=== PATIENT | male | born 1990 | race Caucasian/White ===

== ENCOUNTER 2016-05-22 19:28 | Emergency (ER) | payer SELFPAY ==
[~2016-05-22] VITALS: Ht 170.2 cm; Wt 90.0 kg
[2016-05-22 19:31] VITALS: Ht 170.2 cm; Wt 90.0 kg
[2016-05-22] MEDS ORDERED: KETOROLAC 30 MG INJ IM STA (20:57)
[2016-05-22] MEDS ORDERED: DIAZEPAM 5 MG TAB PO ONE (21:00)
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
[2016-05-22] MEDS ORDERED: IBUP-1542 PO (21:46)
[2016-05-22] MEDS ORDERED: DIAZ5TAB4 PO (21:46)
[2016-05-22 22:32] VITALS: BP 168/78; PULSE 70; RESP 17
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
== END 2016-05-22 22:35 | disposition home or self-care (01) ==
LOC: FTE 19:28
DX: S29.001A Unspecified injury of muscle and tendon of front wall of thorax, initial encounter (principal); R07.9 Chest pain, unspecified; V49.50XA Passenger injured in collision with unspecified motor vehicles in traffic accident, initial encounter; Y92.410 Unspecified street and highway as the place of occurrence of the external cause
CPT/HCPCS: 71010; 96372; 99284; J1885

== ENCOUNTER 2016-12-13 18:53 | Emergency (ER) | payer SELFPAY ==
[~2016-12-13] VITALS: Ht 175.3 cm; Wt 84.0 kg
[~2016-12-13 18:53] MED LIST: DIAZ5TAB4 PO; IBUP-1542 PO
[2016-12-13 19:11] VITALS: Ht 175.3 cm; Wt 84.0 kg
[2016-12-13] MEDS ORDERED: morphine 4 MG/ML VIAL IV STA (19:22)
[2016-12-13] MEDS ORDERED: ONDANSETRON 4 MG INJ IV STA (19:22)
[2016-12-13] MEDS ORDERED: SOD CHLORIDE 0.9% 1,000 ML IV STA (19:22)
--- NOTE | 2016-12-13 19:25 | ERD ---
ER Documentation Chief Complaint Date/Time DATE: 12/13/16 TIME: 19:24 Chief Complaint RLQ ap x 3 days. nausea only, no diarrhea HPI 26-year-old male presents here in emergency department for complete of right lower quadrant abdominal pain for 3 days. Patient's complaining of nausea denies any vomiting diarrhea or constipation. Patient denies any flank pain. Patient denies hematuria or dysuria. Patient denies any fever or chills. Patient denies any sick contacts. Patient described the pain as sharp pain, 6/ 10 scale, accompanied with nausea. Upon questioning more, patient admits to be carrying heavy objects at work, and rests the heavy object on the right lower quadrant area where he has been having the pain. ROS All systems reviewed and are negative except as per history of present illness. Medications Home Meds Active Scripts Diazepam* (Diazepam*) 5 Mg Tablet, 5 MG PO Q8 Y for MUSCLE SPASMS, #20 TAB Prov:ANAI DIEGO PA-C 05/22/16 Ibuprofen* (Motrin*) 600 Mg Tab, 600 MG PO Q6H Y for PAIN AND OR ELEVATED TEMP, #30 TAB Prov:ANAI DIEGO PA-C 05/22/16 Allergies Allergies: Coded Allergies: No Known Allergy (Unverified , 12/13/16) PMhx/Soc History of Surgery: No Anesthesia Reaction: No Hx Neurological Disorder: No Hx Respiratory Disorders: No Hx Cardiac Disorders: No Hx Psychiatric Problems: No Hx Miscellaneous Medical Probl: No Hx Alcohol Use: Yes (OCCASSIONAL) Hx Substance Use: No Hx Tobacco Use: No FmHx Family History: No coronary disease, No diabetes, No other Physical Exam Vitals Vital Signs Date Time Temp Pulse Resp B/P Pulse Ox O2 Delivery O2 Flow Rate FiO2 12/13/16 19:11 98.5 77 20 140/89 98 Physical Exam GENERAL: The patient is well developed and appropriate for usual state of health, in no apparent distress. CHEST: Clear to auscultation bilaterally. There are no rales, wheezes or rhonchi. HEART: Regular rate and rhythm. No murmurs, clicks, rubs or gallops. No S3 or S4. ABDOMEN: Soft, right lower quadrant tenderness noted and nondistended. Good bowel sounds. No rebound or guarding. No gross peritonitis. No gross organomegaly or masses. BACK: No midline or flank tenderness. EXTREMITIES: Equal pulses bilaterally. There is no peripheral clubbing, cyanosis or edema. No focal swelling or erythema. Full range of motion. Grossly neurovascularly intact. NEURO: Alert and oriented. Cranial nerves 2-12 intact. Motor strength in all 4 extremities with 5/5 strength. Sensation grossly intact. Normal speech and gait. SKIN: There is no apparent rash or petechia. The skin is warm and dry. HEMATOLOGIC AND LYMPHATIC: There is no evidence of excessive bruising or lymphedema. No gross cervical, axillary, or inguinal lymphadenopathy. : No scrotal tenderness, no scrotal swelling, no penile discharge, no redness. Result Diagram: 12/13/16194412/13/161944 Results 24 hrs Laboratory Tests Test 12/13/16 19:20 12/13/16 19:45 Urine Color STRAW Urine Clarity CLEAR Urine pH 7.0 Urine Specific [place] 1.013 Urine Ketones NEGATIVEmg/dL Urine Nitrite NEGATIVEmg/dL Urine Bilirubin NEGATIVEmg/dL Urine Urobilinogen NEGATIVEmg/dL Urine Leukocyte Esterase NEGATIVELeu/ul Urine Hemoglobin NEGATIVEmg/dL Urine Glucose NEGATIVEmg/dL Urine Total Protein NEGATIVEmg/dl White Blood Count 9.810^3/ul Red Blood Count 4.8810^6/ul Hemoglobin 15.4g/dl Hematocrit 43.0% Mean Corpuscular Volume 88.1fl Mean Corpuscular Hemoglobin 31.6pg Mean Corpuscular Hemoglobin Concent 35.8g/dl Red Cell Distribution Width 12.7% Platelet Count 30183^3/UL Mean Platelet Volume 9.8fl Neutrophils % 44.2% Lymphocytes % 36.0% Monocytes % 6.0% Eosinophils % 12.4% Basophils % 1.0% Nucleated Red Blood Cells % 0.0/100WBC Neutrophils # 4.310^3/ul Lymphocytes # 3.510^3/ul Monocytes # 0.610^3/ul Eosinophils # 1.210^3/ul Basophils # 0.110^3/ul Nucleated Red Blood Cells # 0.010^3/ul Sodium Level 145mmol/L Potassium Level 4.2mmol/L Chloride Level 102mmol/L Carbon Dioxide Level 28mmol/L Anion Gap 19 Blood Urea Nitrogen 12mg/dl Creatinine 0.93mg/dl Glucose Level 93mg/dl Calcium Level 9.2mg/dl Total Bilirubin 0.1mg/dl Direct Bilirubin 0.00mg/dl Indirect Bilirubin 0.1mg/dl Aspartate Amino Transf (AST/SGOT) 41IU/L Alanine Aminotransferase (ALT/SGPT) 74IU/L Alkaline Phosphatase 89IU/L Total Protein 7.6g/dl Albumin 4.6g/dl Globulin 3.00g/dl Albumin/Globulin Ratio 1.53 Lipase 152U/L Current Medications Medications (Trade) Dose Ordered Sig/Zay Route PRN Reason Start Time Stop Time Status Last Admin Dose Admin Sodium Chloride (NS) 1,000 ml @ 1,000 mls/hr Q1H STAT IV 12/13/16 19:22 12/13/16 20:21 DC 12/13/16 19:33 Morphine Sulfate (morphine) 4 mg ONCE STAT IV 12/13/16 19:22 12/13/16 19:24 DC 12/13/16 19:34 Ondansetron HCl (Zofran Inj) 4 mg ONCE STAT IV 12/13/16 19:22 12/13/16 19:24 DC 12/13/16 19:34 Patient was given medication for pain here in emergency department, after treatment, patient verbalized feeling much better. Patient's pain is improved.Patient was given Zofran here in the emergency department. After treatment, patient was able to tolerate po fluids here in the emergency department without any vomiting. There is no signs and symptoms of dehydration. :Normal saline IV bolus was given here in emergency department for rehydration, patient tolerated IV fluids. PROCEDURE: CT Abdomen and Pelvis without contrast CLINICAL INDICATION: Abdominal pain TECHNIQUE: Transaxial images were obtained through the abdomen and pelvis on a multi-slice scanner without the intravenous contrast administration. No oral contrast had previously been given. Sagittal and coronal re-formations were subsequently reconstructed. One or more of the following dose reduction techniques were used: - Automated exposure control. - Adjustment of the mA and/or kV according to patient size. - Use of iterative reconstruction technique. Radiation dose: CTDIvol = 13.57 mGy; DLP = 793.07 mGy-cm. COMPARISON: No prior studies are available for comparison. FINDINGS: Lung bases: Minimal discoid atelectasis is seen within the posterior right lower lobe. Liver: Normal in size and in attenuation. There is no focal lesion. Gallbladder: The gallbladder is contracted. No radiopaque stone is identified. Bile ducts: The intra and extrahepatic bile ducts are normal in caliber. Pancreas: Appears normal with no mass or inflammation evident. Spleen: Normal in size with no focal lesion. Adrenals: Normal with no mass identified. Kidneys, ureters and bladder: The kidneys are normal in size and there is no mass, pathological calcification, or hydronephrosis evident. There is no perinephric stranding. The ureters are normal in caliber and no ureteroliths are identified. The bladder appears unremarkable. Reproductive organs: Unremarkable. Stomach and bowel: The stomach is moderately distended with food debris. There is no evidence of bowel obstruction or inflammation. Appendix: A normal-appearing retrocecal vermiform appendix is evident. Peritoneum: No free intraperitoneal fluid or air is identified. Aorta: Normal in caliber with no aneurysmal dilatation. IVC: Unremarkable. Lymph nodes: No pathologically enlarged nodes are identified. Osseous structures: The osseous elements appear intact. There is degenerative spurring seen about the sacroiliac joints. IMPRESSION: 1. The stomach is moderately distended with food debris. There is no evidence of bowel obstruction or inflammation and a normal-appearing retrocecal vermiform appendix is evident. 2. No evidence of urinary outflow obstruction or ureterolithiasis within normal appearing bladder. 3. Contracted gallbladder with no gallstones identified. No bile duct dilatation is evident and the pancreas appears unremarkable. 4. There is no free intraperitoneal fluid or air. 5. Minimal discoid atelectasis is seen within the posterior right lower lobe. 6. 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 Physician Ziggy Date Time Electronically viewed and signed by Physician Ziggy on 12/13/2016 20:27 RH/ CC: ANTHONY SAVAGE [employer] Procedures/MDM Medical Decision Making: Patient's right lower quadrant abdominal pain nonspecific at this time, possible viral, can be also possible musculoskeletal pain, possibly from carrying heavy objects and resting on the abdominal area. Possible abdominal soft tissue contusion. There is low suspicion for abdominal emergencies at this time. Patients abdominal exam is normal at this time. Patients radiology exam does not show any abdominal emergencies at this time. There is low suspicion for appendicitis, cholecystitis, abdominal aortic aneurysms or peritonitis at this time. Low suspicion for any acute bacterial infection, no leukocytosis, no bandemia, patient does not have any fever. No hematuria There is low suspicion for sepsis. Patient appears well and is hemodynamically stable. Disposition: Home. Condition: Stable Prescription ibuprofen, tramadol Instructions: Patient is advised to take medications as prescribed. Patient is advised to rest, increase fluid intake and do brat diet for next 1-2 days and progress as tolerated. Avoid heavy lifting. Patient is advised that if symptoms are worse, severe abdominal pain, uncontrolled vomiting, high fever, severe flank pain, worst signs and symptoms, to return to the emergency department immediately. Otherwise, patient can follow up with primary care doctor in 5-7 days. Departure Diagnosis: Primary Impression: Abdominal pain Abdominal location: right lower quadrant Qualified Code: R10.31 - Right lower quadrant abdominal pain Condition: Stable Patient Instructions: Abdominal Pain, Contusion, Soft Tissue Additional Instructions: Patient is advised to take medications as prescribed. Patient is advised to rest, increase fluid intake and do brat diet for next 1-2 days and progress as tolerated. Avoid heavy lifting. Patient is advised that if symptoms are worse, severe abdominal pain, uncontrolled vomiting, high fever, severe flank pain, worst signs and symptoms, to return to the emergency department immediately. Otherwise, patient can follow up with primary care doctor in 5-7 days. ANTHONY SAVAGE NP Dec 13, 2016 19:25
[2016-12-13 19:39] LABS: ADD UMIC NO; UR ASCORBIC ACID NEGATIVE (NEGATIVE); UR BILIRUBIN (Dip) NEGATIVE (NEGATIVE); UR BLOOD (Dip) NEGATIVE (NEGATIVE); UR CLARITY CLEAR (CLEAR); UR COLOR STRAW (YELLOW); UR GLUCOSE (Dip) NEGATIVE (NEGATIVE); UR KETONES (Dip) NEGATIVE (NEGATIVE); UR LEUKOCYTE ESTERASE (Dip) NEGATIVE Leu/ul (NEGATIVE); UR NITRITE (Dip) NEGATIVE (NEGATIVE); UR SPECIFIC GRAVITY (Dip) 1.013 (1.003-1.030); UR TOTAL PROTEIN (Dip) NEGATIVE (NEGATIVE); UR UROBILINOGEN (Dip) NEGATIVE (NEGATIVE)
[2016-12-13 19:54] LABS: BASOPHIL # 0.1 10^3/ul (0.0-0.1); EOSINOPHILS # 1.2 10^3/ul (0.0-0.5); EOSINOPHILS % 12.4 % (0.0-7.0); HEMOGLOBIN 15.4 g/dl (14.0-18.0); LYMPHOCYTES # 3.5 10^3/ul (0.8-2.9); MEAN CORPUSCULAR HEMOGLOBIN 31.6 pg (29.0-33.0); MEAN CORPUSCULAR HGB CONC 35.8 g/dl (32.0-37.0); MEAN CORPUSCULAR VOLUME 88.1 fl (82.0-101.0); MEAN PLATELET VOLUME 9.8 fl (7.4-10.4); MONOCYTE # 0.6 10^3/ul (0.3-0.9); NEUTROPHIL # 4.3 10^3/ul (1.6-7.5); NEUTROPHILS % 44.2 % (39.0-77.0); PLATELET COUNT 291 10^3/UL (140-415); RED BLOOD COUNT 4.88 10^6/ul (4.70-6.10); RED CELL DISTRIBUTION WIDTH 12.7 % (11.5-14.5); WHITE BLOOD COUNT 9.8 10^3/ul (4.8-10.8)
[2016-12-13 20:22] LABS: ALBUMIN 4.6 g/dl (3.3-4.9); ALBUMIN/GLOBULIN RATIO 1.53; BILIRUBIN,INDIRECT 0.1 mg/dl (0-1.1); BILIRUBIN,TOTAL 0.1 mg/dl (0.2-1.3); CALCIUM 9.2 mg/dl (8.4-10.2); CREATININE 0.93 mg/dl (0.61-1.24); POTASSIUM 4.2 mmol/L (3.5-5.1); TOTAL PROTEIN 7.6 g/dl (6.1-8.1)
--- NOTE | 2016-12-13 20:28 | RADRPT ---
PROCEDURE: CT Abdomen and Pelvis without contrast CLINICAL INDICATION: Abdominal pain TECHNIQUE: Transaxial images were obtained through the abdomen and pelvis on a multi-slice scanner without the intravenous contrast administration. No oral contrast had previously been given. Sagit shaniqua and coronal re-formations were subsequently reconstructed. One or more of the following dose reduction techniques were used: - Automated exposure control. - Adjustment of the mA and/or kV according to patient size. - Use of iterative reconstruction technique. Radiation dose: CTDIvol = 13.57 mGy; DLP = 793.07 mGy-cm. COMPARISON: No prior studies are available for comparison. FINDINGS: Lung bases: Minimal discoid atelectasis is seen within the posterior right lower lobe. Liver: Normal in size and in attenuation. There is no focal lesion. Gallbladder: The gallbladder is contracted. No radiopaque stone is identified. Bile ducts: The intra and extrahepatic bile ducts are normal in caliber. Pancreas: Appears normal with no mass or inflammation evident. Spleen: Normal in size with no focal lesion. Adrenals: Normal with no mass identified. Kidneys, ureters and bladder: The kidneys are normal in size and there is no mass, pathological calc ification, or hydronephrosis evident. There is no perinephric stranding. The ureters are normal in c aliber and no ureteroliths are identified. The bladder appears unremarkable. Reproductive organs: Unremarkable. Stomach and bowel: The stomach is moderately distended with food debris. There is no evidence of nikki wel obstruction or inflammation. Appendix: A normal-appearing retrocecal vermiform appendix is evident. Peritoneum: No free intraperitoneal fluid or air is identified. Aorta: Normal in caliber with no aneurysmal dilatation. IVC: Unremarkable. Lymph nodes: No pathologically enlarged nodes are identified. Osseous structures: The osseous elements appear intact. There is degenerative spurring seen about th e sacroiliac joints. IMPRESSION: 1. The stomach is moderately distended with food debris. There is no evidence of bowel obstruction or inflammation and a normal-appearing retrocecal vermiform appendix is evident. 2. No evidence of urinary outflow obstruction or ureterolithiasis within normal appearing bladder. 3. Contracted gallbladder with no gallstones identified. No bile duct dilatation is evident and th e pancreas appears unremarkable. 4. There is no free intraperitoneal fluid or air. 5. Minimal discoid atelectasis is seen within the posterior right lower lobe. 6. 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 Nai Louis Physician Date Time Electronically viewed and signed by Nai Louis Physician on 12/13/2016 20:27 /
[2016-12-13] MEDS ORDERED: TRAM50TA2 PO (20:52)
[2016-12-13] MEDS ORDERED: IBUP-1542 PO (20:52)
== END 2016-12-13 21:03 | disposition home or self-care (01) ==
LOC: FTE 18:53
DX: R10.31 Right lower quadrant pain (principal); R11.0 Nausea
CPT/HCPCS: 36415; 74176; 80053; 81003; 83690; 85025; 96374; 96375; 99285; J2270; J2405; J7030